=== PATIENT | female | born 1965 | race Caucasian/White ===

== ENCOUNTER 2016-10-20 06:59 | Emergency (ER) | payer OTHER ==
--- NOTE | 2016-10-20 07:25 | EDPHY ---
HPI/HX/ROS/PE/MDM Narrative: CHIEF COMPLAINT: Left lower back pain HISTORY OF PRESENT ILLNESS: The patient is a 51 y/o female with 4-5 day history of left lower back/ cva pain. She has a history of dermoid tumors and kidney stones, although she has not had a kidney stone for the past four years. She initially attributed her symptoms to a UTI due to dysuria and one day of subjective fever. Her left flank pain is radiating to her LLQ. Her pain worsens while moving or lying towards her left side, and cannot identify any alleviating factors. Patient was evaluated in ED previously for possible stone, and at that time was diagnosed with constipation. She states she did have a good bowel movement this morning. No current fever, hematuria, chills, chest pain, shortness of breath, cough, palpitations, vomiting, nausea, diarrhea, headache, lightheadedness, rash. Denies a history of hypertension, diabetes, shingles, diverticulitis. REVIEW OF SYSTEMS: Aside from elements discussed in the HPI, a comprehensive 10-point review of systems was reviewed and is negative. 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 SOCIAL HISTORY: Smoker, drinks alcohol, daughter at bedside, no marijuana, PCP : [place] Prior medical records reviewed including ED visit on 03/31/12 for left flank pain. An abdominal CT at that time was negative for nephrolithiasis. VITAL SIGNS: Reviewed by me GENERAL: Well-developed, well-nourished, reporting moderate pain, in no respiratory distress. HEENT: Atraumatic. Eyes: No icterus, no injection. Mouth: moist mucous membranes. No erythema or lesions. Neck: supple with no adenopathy. LUNGS: Clear to auscultation bilaterally, no wheezes, rhonchi or rales. CARDIAC: Regular rate and rhythm, no rubs, murmurs or gallops. ABDOMEN: Soft, mild epigastric and inconsistent LLQ tenderness, nondistended, bowel sounds normal. BACK: Left flank and mild lumbar spine tenderness. EXTREMITIES: No trauma. No edema. Range of motion is normal throughout. NEURO: Alert and oriented, grossly nonfocal. SKIN: Warm and dry, no rash. PSYCHIATRIC: Normal mentation, no agitation. Portions of this note were transcribed by a director of medical services. I personally performed a history, physical exam, medical decision making, and confirmed accuracy of information the transcribed note. ED Course: The patient is a 51 y/o female who presents with left flank pain for the past 4 -5 days. On exam she has left flank tenderness, mild lumbar tenderness, epigastric tenderness, and inconsistent LLQ tenderness. Plan for IV, urinalysis , and symptom management. 1mg IV Dilaudid and 1L IV NS administered. Labs largely unremarkable except for UA with trace bacteria. SEnt for culture. CT reveals no stones, no indication of recurrent dermoid tumor. Reassessed patient and discussed workup. Her abdominal CT shows mild constipation with no indication of nephrolithiases, per Dr. Mckoy, radiologist. Her labs and UA are unremarkable. She will be discharged with constipation care instructions, script for Tramadol, and a referral for follow up with her PCP. Her urine was sent for culture to determine if she has a UTI, she will be given a prescription for Keflex if this culture is positive. Discussed return precautions, patient is comfortable with this plan. MDM: Differential diagnosis of the patient's flank pain and abdominal pain was considered including but not limited to musculoskeletal causes, kidney stone, pyelonephritis, shingles, and intra-abdominal causes such as diverticulitis and constipation. - Data Points Imaging Results: Ct Abd Pelvis Impression: No evidence for nephrolithiasis or hydronephrosis. Moderate constipation. Minimal diverticulosis sigmoid colon without evidence for diverticulitis. The cystic lesion in the right adnexal region seen previously is absent and has been removed surgically by history. Results relayed to Chelsey Cage M.D. on October 20, 2016 at 10:17 a.m. Imaging: Discussed imaging studies w/ director call Radiologist, I viewed and interpreted images myself Laboratory Results: Laboratory Results 10/20/16 07:20 10/20/16 07:20 Medications Given: Discontinued Medications Hydromorphone HCl (Dilaudid) 1 mg IVP EDNOW ONE Stop: 10/20/16 07:28 Last Admin: 10/20/16 07:40 Dose: 1 mg Sodium Chloride (Ns) 1,000 mls @ 0 mls/hr IV EDNOW ONE; Wide Open PRN Reason: Protocol Stop: 10/20/16 07:28 Last Admin: 10/20/16 07:39 Dose: 1,000 mls Microbiology Results: MICROBIOLOGY 10/20/16 07:40 Urine,Clean Catch Urine Culture - Final General Initial Vital Signs: Initial Vital Signs Temperature (C) 36.7 C 10/20/16 07:01 Heart Rate 80 10/20/16 07:01 Respiratory Rate 16 10/20/16 07:01 Blood Pressure 105/65 10/20/16 07:01 O2 Sat (%) 94 10/20/16 07:01 O2 Delivery Mode Room Air Allergies/Adverse Reactions: vancomycin [Vancomycin] Allergy (Severe, Verified 10/20/16 07:00) Home Medications: Medication Instructions Recorded VALACYCLOVIR HCL [Valtrex] 1,000 mg PO 05/15/10 Cephalexin [Keflex (RX)] 500 mg PO TID 5 Days 10/20/16 traMADol [Ultram 50 mg (*)] 50 mg PO Q4-6PRN PRN #15 tab 10/20/16 Departure - Departure Disposition: Home, Routine, Self-Care Clinical Impression: Flank pain Constipation Qualifiers: Constipation type: unspecified constipation type Qualified Code(s): K59.00 - Constipation, unspecified Condition: Good Instructions: Magnesium Citrate (By mouth), Constipation (ED), High Fiber Diet (ED), Flank Pain (ED) Additional Instructions: 1. Take magnesium citrate as directed on the bottle for constipation. Increase your fiber and fluid intake. 2. Take Tramadol as prescribed as needed for pain. 3. Follow up with your primary care provider for unimproved symptoms over the next 2-3 days. 4. Return to the ED if you develop severe abdominal or back pain, inability to urinate or have a bowel movement, fever, or other worsening symptoms 5. Your urine has bee sent for culture, if it comes back positive for a UTI, fill your Keflex prescription and take as prescribed. 6. You are due for a colonoscopy, be sure to address this with your PCP at your next appointment. Referrals: [facility] [place], [Primary Care Provider] - As per Instructions Prescriptions: Cephalexin [Keflex (RX)] 500 mg PO TID 5 Days traMADol [Ultram 50 mg (*)] 50 mg PO Q4-6PRN PRN #15 tab PRN Reason: pain Report Scribed for: Chelsey Cage Report Scribed by: Donna Gutierrez Date of Report: 10/20/16 Time of Report: 07:48
[2016-10-20] MEDS ORDERED: NS 1,000 ML IV ONE (07:27)
[2016-10-20] MEDS ORDERED: HYDROmorphONE/DILAUDID 1 MG/ML SYR IVP ONE (07:27)
[2016-10-20 07:33] LABS: % IMMATURE GRANULYOCYTES 0.2 % (0.0-1.1); ABSOLUTE IMMATURE GRANULOCYTES 0.01 10^3/uL (0.00-0.10); ADD DIFF? NO; ADD MORPH? NO; ADD SCAN? NO; ATYPICAL LYMPHOCYTE FLAG 0 (0-99); FRAGMENT RBC FLAG 0 (0-99); HEMATOCRIT 45.1 % (38.0-47.0); HEMOGLOBIN 15.2 g/dL (12.6-16.3); LEFT SHIFT FLG 0 (0-99); LIPEMIA HEMOLYSIS FLAG 80 (0-99); MEAN CELL HEMOGLOBIN 29.7 pg (27.9-34.1); MEAN CELL HEMOGLOBIN CONCENTR. 33.7 g/dL (32.4-36.7); MEAN CELL VOLUME 88.1 fL (81.5-99.8); PLATELET CLUMPS FLAG 0 (0-99); PLATELET COUNT 134 10^3/uL (150-400); RED BLOOD CELL COUNT 5.12 10^6/uL (4.18-5.33); RED CELL DISTRIBUTION WIDTH 13.1 % (11.5-15.2)
[2016-10-20] MEDS ORDERED: ONDANSETRON 4 MG/2 ML VIAL IVP ONE (07:42)
[2016-10-20 07:45] LABS: ANION GAP 8 mEq/L (8-16); CALCIUM 9.2 mg/dL (8.5-10.4); CARBON DIOXIDE 23 mEq/l (22-31); CHLORIDE 108 mEq/L (97-110); CREATININE 0.7 mg/dL (0.6-1.0); GLOMERULAR FILTRATION RATE > 60; GLUCOSE 79 mg/dL (70-100); POTASSIUM 4.3 mEq/L (3.5-5.2); SODIUM 139 mEq/L (134-144)
[2016-10-20 07:53] LABS: COLOR YELLOW; LEUKOCYTE ESTERASE,URINE NEGATIVE (NEGATIVE); NITRITE,URINE NEGATIVE (NEGATIVE)
[2016-10-20 07:59] LABS: BACTERIA TRACE /hpf (NONE SEEN); MUCUS TRACE /lpf (NONE-1+)
[2016-10-20] MEDS ORDERED: IOPAMIDOL (ISOVUE-300) 100 ML BTL ONE (08:41)
[2016-10-20 11:21] VITALS: BP 102/65; PULSE 78; RESP 18; TEMP 98.4; O2SAT 95
== END 2016-10-20 11:15 | disposition home or self-care (01) ==
DX: K59.00 Constipation, unspecified (principal); E86.9 Volume depletion, unspecified; F17.200 Nicotine dependence, unspecified, uncomplicated; R10.9 Unspecified abdominal pain
CPT/HCPCS: 96374; J1170; Q9967